=== PATIENT | male | born 1995 | race Caucasian/White ===

== ENCOUNTER 2018-06-25 14:13 | Emergency (ER) | payer MEDICAID ==
[~2018-06-25] VITALS: Ht 175.3 cm; Wt 90.9 kg
[~2018-06-25 14:13] MED LIST: NO HOME MEDS
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
[2018-06-25 17:01] LABS: BASOPHILS # (AUTO) 0.1 X10'3 (0-0.2); BASOPHILS % (AUTO) 0.7 % (0-1); EOSINOPHILS # (AUTO) 0.2 X10'3 (0-0.9); EOSINOPHILS % (AUTO) 2.5 % (0-6); HEMATOCRIT 46.8 % (42.0-52.0); HEMOGLOBIN 16.3 g/dl (14.0-17.9); LYMPHOCYTES # (AUTO) 1.3 X10'3 (1.1-4.8); LYMPHOCYTES % (AUTO) 16.3 % (21-51); MEAN CORPUSCULAR HEMOGLOBIN 30.5 PG (27.0-31.0); MEAN CORPUSCULAR HGB CONC 34.9 g/dL (33.0-36.5); MEAN CORPUSCULAR VOLUME 87.4 FL (78-98); MEAN PLATELET VOLUME 8.3 FL (7.4-10.4); MONOCYTES # (AUTO) 0.6 X10'3 (0-0.9); NEUTROPHILS # (AUTO) 5.8 X10'3 (1.8-7.7); NEUTROPHILS % (AUTO) 72.5 % (42-75); PLATELET COUNT 190 X10'3 (140-440); RED BLOOD COUNT 5.36 X10'6 (4.70-6.10); RED CELL DISTRIBUTION WIDTH 13.3 % (11.5-14.5)
[2018-06-25 17:08] LABS: ALANINE AMINOTRANSFERASE 29 U/L (12-78); ALBUMIN 4.3 G/DL (3.4-5.0); ALBUMIN/GLOBULIN RATIO 1.5 (1.1-1.5); ALKALINE PHOSPHATASE 112 IU/L (46-116); ANION GAP 10 (8-16); ASPARTATE AMINO TRANSFERASE 13 U/L (10-37); BILIRUBIN,TOTAL 1.1 MG/DL (0.1-1.0); BLOOD UREA NITROGEN 12 MG/DL (7-18); BUN/CREATININE RATIO 9.4 (5.4-32.0); CALCIUM 9.6 MG/DL (8.5-10.1); CHLORIDE 104 MMOL/L (99-107); CREATININE 1.27 MG/DL (0.60-1.10); ETHANOL < 0.010 GM/DL (0.0-0.010); GLUCOSE 88 MG/DL (70-104); POTASSIUM 4.1 MMOL/L (3.5-5.1); SODIUM 141 MMOL/L (135-145); TOTAL PROTEIN 7.2 G/DL (6.4-8.2); eGFR 70 ML/MIN
[2018-06-25 17:13] LABS: URINE AMPHETAMINE SCREEN NEGATIVE (Neg); URINE BARBITUATE SCREEN NEGATIVE (Neg); URINE BENZODIAZEPINES SCREEN NEGATIVE (Neg); URINE CANNABINOID SCREEN NEGATIVE (Neg); URINE COCAINE SCREEN NEGATIVE (Neg); URINE METHADONE SCREEN NEGATIVE (Neg); URINE OPIATE SCREEN NEGATIVE (Neg); URINE PHENCYCLIDINE SCREEN NEGATIVE (Neg)
--- NOTE | 2018-06-25 17:55 | NUR ---
Telepsyche ordered for patient. Patient engaged in telepsyche at this time.
[2018-06-25] MEDS ORDERED: CEPH500C2 PO (18:50)
--- NOTE | 2018-06-25 21:01 | NUR ---
pt asleep in bed, resp even and unlabored, sitter in line of sight.
[2018-06-26] MEDS: cephalexin 500mg capsule PO SCH ×4 (02:01→19:54)
--- NOTE | 2018-06-26 02:06 | NUR ---
pt ambulated to restroom and back in bed on a steady gait, pt calm,quiet,cooperative, pt given scheduled medication and a cup of water, pt tolerated well, sitter in line of sight.
--- NOTE | 2018-06-26 05:24 | NUR ---
pt asleep, resp even and unlabored, sitter in line of sight.
--- NOTE | 2018-06-26 06:30 | NUR ---
Asleep upon change of shift observation. Color and breathing WNL. Undisturbed at this time. Patient in line of sight of sitters.
--- NOTE | 2018-06-26 08:30 | NUR ---
Awakened for breakfast and AM antibiotic. Pleasant upon staff approach. States he continues to feel suicidal. Non-specific about his plan. Oriented times 4.
--- NOTE | 2018-06-26 09:30 | NUR ---
Mari from [facility] at bedside to evaluate patient. Decision made to place patient on a 5150 for danger to self.
--- NOTE | 2018-06-26 15:08 | NUR ---
Alexandro VIRAMONTES, at bedside to evaluate for medication management.
[2018-06-26] MEDS: nicotine 14mg patch - 24hr TD SCH (16:29)
--- NOTE | 2018-06-26 16:49 | NUR ---
Requested Nicotine replacement medication. Nicotine patch ordered and applied at this time.
--- NOTE | 2018-06-26 19:34 | NUR ---
Patient in bed resting. Patient states that he has no thoughts of killing himself or others. Patient states he "chopped" his finger off because it was and it was making him mad.
--- NOTE | 2018-06-26 21:15 | NUR ---
Patient is under the blankets sitting quietly.
--- NOTE | 2018-06-26 22:10 | NUR ---
Patient laying quietly and awake in a supine position.
[2018-06-26] MEDS ORDERED: hydrOXYzine 25 MG tablet PO PRN (23:00)
[2018-06-26] MEDS ORDERED: LORazepam 1 MG tablet PO PRN (23:00)
--- NOTE | 2018-06-26 23:12 | NUR ---
Patient remains awake and restless. Patient continues to ask strange questions and tosses around in bed.
--- NOTE | 2018-06-26 23:40 | NUR ---
Patient is farting in bed and giggling about it.
--- NOTE | 2018-06-27 00:25 | NUR ---
Patient remains restless. He requests another water pitcher. This would be his 5th in 6 hours and patient is continuously getting up to the restroom. Patient encouraged to try to get some sleep. He states, "its just not that easy." Patient is now laying on his left side with his eyes closed.
--- NOTE | 2018-06-27 02:49 | NUR ---
Patient sleeping on left side with even, unlabored breathing.
[2018-06-27] MEDS: cephalexin 500mg capsule PO SCH ×3 (04:23→13:12)
[2018-06-27 06:05] VITALS: BP 112/57
--- NOTE | 2018-06-27 06:30 | NUR ---
Pt is sleeping on his right side. RR even and unlabored.
[2018-06-27] MEDS ORDERED: FLUoxetine 20mg capsule PO SCH (08:00)
--- NOTE | 2018-06-27 08:28 | NUR ---
Pt is sleeping; pt states, "I do not want to get up to eat or take my medications."
[2018-06-27] MEDS: nicotine 14mg patch - 24hr TD SCH (10:00)
--- NOTE | 2018-06-27 10:19 | NUR ---
Pt ate; took his medications and is now using a crayon and piece of paper at the bedside table. He is calm and cooperative.
--- NOTE | 2018-06-27 11:54 | NUR ---
Pt continues to sleep. RR even and unlabored.
--- NOTE | 2018-06-27 13:15 | NUR ---
Pt continues to rest on his bed. BRIGETTE Mccray is waiting for results from UA and a STAT blood draw for TSH.
--- NOTE | 2018-06-27 13:41 | NUR ---
Pt is calm and cooperative. Ate his lunch. Bed linens changed. Provided UA. Waiting for STAT TSH so he can be discharged to [facility].
[2018-06-27 14:41] LABS: CLARITY,URINE CLEAR (Clear); COLOR,URINE YELLOW (Yellow); GLUCOSE, URINE NEGATIVE (Neg); KETONES,URINE TRACE mg/dl (Neg); LEUKOCYTE ESTERASE ,URINE NEGATIVE (Neg); NITRITES, URINE NEGATIVE (Neg); OCCULT BLOOD,URINE NEGATIVE (Neg); PROTEIN,URINE NEGATIVE (Neg); UROBILINOGEN,URINE 0.2 E.U/dL (0.2-1.0)
[2018-06-27 14:42] LABS: UA COLLECTION TYPE VOIDED
[2018-06-27] MEDS ORDERED: risperiDONE 2mg tablet PO SCH (21:00)
== END 2018-06-27 15:22 ==
LOC: ER 14:14
DX: R45.851 Suicidal ideations (principal); F17.200 Nicotine dependence, unspecified, uncomplicated; Z56.0 Unemployment, unspecified; Z88.2 Allergy status to sulfonamides
CPT/HCPCS: 36415; 80053; 80305; 80320; 81003; 84443; 85025; 99285; Q0177

== ENCOUNTER 2019-11-24 15:47 | Emergency (ER) | payer MEDICAID ==
[~2019-11-24] VITALS: Ht 175.3 cm; Wt 87.5 kg
[~2019-11-24 15:47] MED LIST changes: +CEPH500C2 PO
[2019-11-24 15:58] VITALS: BP 145/71
== END 2019-11-24 16:33 | disposition home or self-care (01) ==
LOC: ER 15:48
DX: R20.2 Paresthesia of skin (principal); R20.0 Anesthesia of skin; Z56.0 Unemployment, unspecified; Z88.2 Allergy status to sulfonamides; Z79.899 Other long term (current) drug therapy
CPT/HCPCS: 29125; 99283

== ENCOUNTER 2021-03-12 20:36 | Emergency (ER) | payer MEDICAID ==
[~2021-03-12] VITALS: Ht 175.3 cm; Wt 85.0 kg
[2021-03-12 20:41] VITALS: BP 129/56
== END 2021-03-12 21:45 | disposition home or self-care (01) ==
LOC: ER 20:36
DX: H92.01 Otalgia, right ear (principal); Z56.0 Unemployment, unspecified
CPT/HCPCS: 99282